=== PATIENT | male | born 1955 | race Caucasian/White ===

== ENCOUNTER → 2023-11-10 12:37 | Outpatient (REF) | payer MEDICARE, OTHER, SELFPAY ==
[2023-11-10 13:30] VITALS: BMI 29.8
== END ==
LOC: SDSPAT 12:37
PROVIDERS: ATTENDING PHYSICIAN Specialist; FAMILY PHYSICIAN Family Medicine
DX: C67.9 Malignant neoplasm of bladder, unspecified (principal)
CPT/HCPCS: 36415; 93005

== ENCOUNTER → 2023-11-13 14:43 | Outpatient (REF) | payer MEDICARE, OTHER, SELFPAY | LOC: HWRAD 14:43 | PROVIDERS: ATTENDING PHYSICIAN Specialist; FAMILY PHYSICIAN Family Medicine | DX: D41.4 Neoplasm of uncertain behavior of bladder (principal) | CPT/HCPCS: 74178; Q9967 ==

== ENCOUNTER 2023-11-16 06:28 | Day surgery (SDC) | payer MEDICARE, OTHER, SELFPAY ==
[2023-11-16] VITALS (17 sets, daily range): BP systolic 141–179; BP diastolic 92–108; BMI 29.0
[2023-11-16] MEDS: NORMOSOL-R 1000 IV (09:08)
--- NOTE | 2023-11-16 12:12 | W.PN.ADMIT ---
Progress Note - Admit
Progress Note - Admit
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
admit for cbi and monitoring of renal function
[2023-11-16] MEDS: DILAUDID 0.25 MG IV (12:13)
[2023-11-16] MEDS: NSS 1000 IV (12:30)
[2023-11-16] MEDS: DETROL LA 4 MG PO (12:42)
[2023-11-16 12:43] LABS: Hematocrit 37.2 % (39.0-52.0); Hemoglobin 13.1 g/dL (13.0-18.0); Mean Corp Hgb Conc. 35.2 g/dL (33.0-37.0); Mean Platelet Volume 8.9 fL (7.4-10.4); Platelet Count 200 10^3/uL (130-400); Red Blood Cell Count 4.09 10^6/uL (4.70-6.10); Red Cell Dist. Width 12.4 % (11.5-14.5)
[2023-11-16 13:08] LABS: Blood Urea Nitrogen 15 mg/dl (9-20); Calcium 8.8 mg/dl (8.4-10.2); Carbon Dioxide 27 mmol/L (22-30); Chloride 103 mmol/L (98-107); Estimated Creatinine Clearance 56 ml/min; Glucose 100 mg/dl (70-99); Sodium 137 mmol/L (135-145); eGFR > 60.00
[2023-11-16] MEDS: VALIUM INJECTION 5 MG IV ×2 (13:15→23:17)
--- NOTE | 2023-11-16 16:00 | PTCARENOTE ---
Patient admitted from [facility] post TURBT,cystoscopy and urethral dilatation.Vital signs are stable.The patient rates his pain at a 2-3 out of 10.The urine is yellow with continuous bladder irrigation in place.The patient is in his bed with the call
jack in reach.
[2023-11-16] MEDS: EMLA CREAM 2 GRAM TOPICAL ×2 (17:50→21:30)
[2023-11-16] MEDS: COLACE 100 MG PO (21:28)
[2023-11-16] MEDS: FLOMAX 0.400000000000000022 MG PO (21:28)
[2023-11-16] MEDS: VIBRAMYCIN 100 MG PO (21:28)
[2023-11-16] MEDS: APRESOLINE 5 MG IV (23:18)
[2023-11-17] MEDS: NSS 1000 IV (02:11)
[2023-11-17] MEDS: VALIUM INJECTION 5 MG IV (03:26)
[2023-11-17 03:29] VITALS: BP 155/87
[2023-11-17 05:48] LABS: Hemoglobin 13.3 g/dL (13.0-18.0); Mean Corpuscular Hgb 32.4 pg (27.0-31.0); Mean Corpuscular Volume 92.5 fL (80.0-94.0); Platelet Count 230 10^3/uL (130-400); Red Blood Cell Count 4.11 10^6/uL (4.70-6.10); White Blood Cell Count 11.7 10^3/uL (4.8-10.8)
[2023-11-17] MEDS: EMLA CREAM TOPICAL ×2 (06:14→12:10)
[2023-11-17 06:16] LABS: Blood Urea Nitrogen 14 mg/dl (9-20); Calcium 8.9 mg/dl (8.4-10.2); Carbon Dioxide 22 mmol/L (22-30); Chloride 105 mmol/L (98-107); Estimated Creatinine Clearance 67 ml/min; Glucose 115 mg/dl (70-99); Potassium 3.8 mmol/L (3.5-5.1); Sodium 137 mmol/L (135-145); eGFR > 60.00
--- NOTE | 2023-11-17 06:24 | W.PN.URO.CBU ---
Today's Communication / Plan
-
discharge
Assessment / Plan
-
s/p urethral dilation and TURBT
urine clear and labs stable
home today
Diagnosis
-
Date of Service: November 17, 2023
-
Patient Diagnosis:
bladder tumor
Post Op Day:
TURBT 11/15
Subjective
-
pt feels ok
urine clear off cbi
labs- including cr level- normal
Objective
-
Vital Signs
Temp Pulse Resp BP Pulse Ox
98.1 F 84 18 155/87 94
11/17/23 03:29 11/17/23 03:29 11/17/23 03:29 11/17/23 03:29 11/17/23 03:29
Intake and Output
11/15/23 11/16/23 11/17/23
06:59 06:59 06:59
Intake Total 3426 / 3426
Output Total 3100 / 3100
Balance 326 / 326
Intake:
Oral fluids 571 / 571
IV fluids (Total) 255 / 255
Nss 1,000 ml @ 80 mls/hr IV . 180 / 180
[id number] [facility] Rx#:[id number]
norm 75 / 75
Cook intermittent irrigation 2600 / 2600
Output:
True Urine Output from CBI 3100 / 3100
Laboratory Results
11/17/23 05:26
11/17/23 05:26
Review of Systems
-
Constitutional: Fatigue
Respiratory: No Symptoms
Cardiac: No Symptoms
Abdomen/GI: No Symptoms
Physical Exam
-
General - no acute distress
Abdomen - soft, non-tender
Genitalia - normal- cook in place
Neuro - AOx3, no motor deficits
Extremities - no clubbing, no cyanosis, no edema
[2023-11-17] MEDS: VITAMIN B-12 1000 MCG PO (07:22)
[2023-11-17] MEDS: VITAMIN D3 (cholecalciferol) 25 MCG PO (07:22)
[2023-11-17] MEDS: COLACE 100 MG PO (07:22)
[2023-11-17] MEDS: VIBRAMYCIN 100 MG PO (07:22)
[2023-11-17] MEDS: PROTONIX 20 MG PO (07:22)
[2023-11-17] MEDS: COZAAR 50 MG PO (07:22)
[2023-11-17] MEDS: DETROL LA 4 MG PO (07:22)
[2023-11-17] MEDS: CRESTOR 10 MG PO (07:22)
[2023-11-17 07:40] VITALS: BP 154/94
--- NOTE | 2023-11-17 10:45 | CM ---
Reviewed the chart notes and spoke with the patient at the bedside. Patient resides with spouse in a two story home with no steps to enter. The patient's master bedroom and bath are on the first level. The patient reports no DME/VN/SNF in the
past. The patient confirmed his pharmacy of choice is [facility]. The patient will be discharged to home with cook cath. Patient has had in the past. Patient declined VN needs. CM continues to be available to patient/family and is
monitoring medical plan for needs at discharge.
Plan: Discharge to home today. No needs identified at this time.
[2023-11-17 11:20] VITALS: BP 156/99
== END 2023-11-17 12:26 | disposition home or self-care (01) ==
LOC: SDS 06:28
PROVIDERS: ATTENDING PHYSICIAN Specialist
DX: C67.8 Malignant neoplasm of overlapping sites of bladder (principal); N35.919 Unspecified urethral stricture, male, unspecified site
CPT/HCPCS: 52235; 88307; 80048; 85027